=== PATIENT | male | born 1945 | race Caucasian/White ===

== ENCOUNTER → 2018-08-11 | Outpatient (CLI) | payer MEDICARE, OTHER ==
[~2018-08-11] MED LIST: COUMADIN 22.5 MG/TAB PO; COUMADIN 5MG5 MG/TAB PO; KEPPRA250 MG PO; NEURONTIN100 MG/CAP PO; NORCO 325 MG-51 TAB PO; PERCOCET 325 MG1 TA2 PO; TOPROL XL 25MG25 MG PO; ZYLOPRIM 300MG300 MG PO
== END ==
LOC: COL.RAD 07:26
DX: Z01.818 Encounter for other preprocedural examination (principal); I71.01 Dissection of thoracic aorta; I10 Essential (primary) hypertension; I71.4 Abdominal aortic aneurysm, without rupture; M46.96 Unspecified inflammatory spondylopathy, lumbar region; M43.8X5 Other specified deforming dorsopathies, thoracolumbar region; K80.20 Calculus of gallbladder without cholecystitis without obstruction; Z95.1 Presence of aortocoronary bypass graft
CPT/HCPCS: Q9967

== ENCOUNTER 2019-03-21 08:45 | Outpatient (RCR) | payer MEDICARE, OTHER | END 2019-04-14 | disposition still patient (30) | LOC: MKS.ESL.PT | DX: G81.94 Hemiplegia, unspecified affecting left nondominant side (principal); R25.2 Cramp and spasm; R26.81 Unsteadiness on feet ==

== ENCOUNTER → 2021-01-10 | Outpatient (CLI) | payer MEDICARE | LOC: COL.RAD 09:47 | DX: M75.101 Unspecified rotator cuff tear or rupture of right shoulder, not specified as traumatic (principal) ==

== ENCOUNTER 2021-03-18 10:30 | Outpatient (RCR) | payer MEDICARE | END 2021-03-18 12:40 | disposition home or self-care (01) | LOC: MKS.ESL.PT 10:30 | DX: M25.519 Pain in unspecified shoulder (principal) ==

== ENCOUNTER 2022-01-25 17:50 | Observation (INO) | payer MEDICARE ==
[~2022-01-25] VITALS: Ht 180.3 cm; Wt 91.8 kg
[2022-01-25 18:16] LABS: BASO # 0.1 K/mm3 (0.0-0.2); BASO % 1.1 % (0.0-2.0); EOS # 0.1 K/mm3 (0.0-0.7); EOS % 1.7 % (0.0-4.0); GRAN # 4.1 K/mm3 (1.4-6.5); GRAN % 76.5 % (42.2-75.2); HEMATOCRIT 38.2 % (42.0-52.0); LYMPH # 0.7 K/mm3 (1.2-3.4); LYMPH % 13.9 % (20.0-51.0); MEAN CELL VOLUME 89 fl (80.0-100.0); MEAN CORPUSCULAR HEMOGLOBIN 33 pg (27-31); MEAN CORPUSCULAR HGB CONC 37 g/dl (33.0-37.0); MEAN PLATELET VOLUME 9.5 fl (7.4-10.4); MONO # 0.3 K/mm3 (0.1-0.6); MONO % 6.4 % (1.7-9.3); PLATELET COUNT 152 K/mm3 (130-400); RED BLOOD COUNT 4.31 M/mm3 (4.20-5.60); REDCELL DISTRIBUTION WIDTH-CV 12.6 % (11.5-14.5)
[2022-01-25 18:30] LABS: INR 3.4 (0.8-3.0); PROTHROMBIN TIME 40.1 SECONDS (9.7-12.8)
[2022-01-25] MEDS ORDERED: COZAAR 25MG25 MG/TAB (19:14)
[2022-01-25] MEDS ORDERED: GLUCOPHAGE500 MG/TAB PO ×2 (19:16→19:45)
[2022-01-25] MEDS ORDERED: UROXATRAL10 M1 PO ×2 (19:19→19:43)
[2022-01-25] MEDS ORDERED: NEURONTIN300 MG/CAP PO ×2 (19:20→19:47)
[2022-01-25] MEDS ORDERED: HYZAAR 25 MG-101 TAB PO (19:43)
[2022-01-25] MEDS ORDERED: KEPPRA750 MG PO (19:44)
[2022-01-25] MEDS ORDERED: KEPPRA 500MG500 MG PO (19:44)
[2022-01-25] MEDS ORDERED: COUMADIN 5MG5 MG/TAB PO (19:46)
[2022-01-25] MEDS ORDERED: ZYLOPRIM 100MG100 MG PO (19:47)
[2022-01-25] MEDS ORDERED: NORCO 325 MG-51 TAB PO (19:47)
[2022-01-25 21:03] VITALS: BP 153/83; PULSE 69; TEMP 97.9
--- NOTE | 2022-01-25 21:05 | NUR ---
PT BROUGHT TO ROOM FROM ED AND ADMITTED.
[2022-01-25 21:25] LABS: CALCIUM 9.2 mg/dL (8.4-10.2); CREATININE, serum 0.85 mg/dL (0.72-1.25); POTASSIUM 3.6 mmol/L (3.5-4.5)
[2022-01-25 23:28] VITALS: BP 155/67; PULSE 56; TEMP 97.9
--- NOTE | 2022-01-26 00:31 | NUR ---
Pt alert and oriented. Follows commands. Q4 neuro checks being assessed. Denies dizziness/lightheadedness/nausea/vomiting. Reports pain on the left side with movement and reports he is unable to bare weight on the left. Prn pain medication administered x1 for left sided pain. 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 Right hand fruit buying grader is strong. Pt reports using a cane at home to ambulate, but is unable to ambulate at this time. Pt voided in urinal with assistance. Pt has some edema in the left foot with bruising noted. There is some light scattered bruising on the left leg, did not note any significant bruising on the left hip. No open wounds noted. Admission intake and admission assessments completed. Med rx reviewed. Allergies confirmed. COVID and infectious disease assessments completed. VS stable. Afebrile. On room air. Fall precautions in place. Seizure precautions in place. Pt does not report any questions at this time. Pt oriented to room. Bed low and locked, call sparks within reach. No new concerns at this time.
[2022-01-26 03:55] VITALS: BP 142/84; PULSE 55; TEMP 98.2
[2022-01-26 07:13] VITALS: BP 122/65; PULSE 53; TEMP 98.1
--- NOTE | 2022-01-26 07:24 | NUR ---
No adverse events overnight. Pt reports left sided pain with movement. Prn pain medication administered x1 per orders. Tolerating PO. Neuro checks continuing per orders. Ice pack offered to pt, but he refused at this time. Pt voided adequtely overnight. Fall precautions and seizure precauions in place. Bed low and locked, call sparks within reach. No concerns at this time.
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
[2022-01-26 10:23] LABS: INR 3.2 (0.8-3.0); PROTHROMBIN TIME 36.6 SECONDS (9.7-12.8)
[2022-01-26 11:06] VITALS: BP 98/61; PULSE 56; TEMP 98.7
--- NOTE | 2022-01-26 11:26 | NUR ---
General Agent met with patient Joe, and his spouse Mary cell, at bedside. Patient is alert and oriented, and he gives verbal consent to speak to this General Agent with spouse present. Patient states he has suffered left-side weakness for 20 years, and he does have a cane at home that he occasionally uses to ambulate, preferring to try to walk independently without and he states he uses "lots of chairs, couches" to help him with his balance when walking at home. He does report access to a wheelchair, as needed, and he has grab bars in his shower. He denies use of any other durable medical equipment, and he states he is otherwise independent in his ADLs. His spouse informs she is unable to pick him up off the floor if he should fall, so that is their only difficulty. Usually, she can support him in his needs, including IADLs. They utilize no in-home supports or services at this time. Patient sees Dr. Burton Smart for primary care, and he obtains his medications at [facility] without any difficulties. He states PT has met with him today and recommends he be placed in intensive rehab to get stronger before return to home. He asks if this General Agent will support that plan. General Agent informs will absolutely support the recommendation for rehab in collaboration with his medical treatment team. He expresses gratitude. Patient spouse is his DPOA-HC and his adult son Guzman Houser, is secondary ; spouse will bring up the paperwork to be scanned into patient EMR. Patient states "What kind of questions should I ask you?" and he verbalizes understanding of social work services as educated/offered. He and his spouse express no further concerns at this time. Social Work continues to follow. *Discharge plan: pending PT/OT and physician recommendation* Social Work notes, per Dr. Puente, no IPR referral at this time, will continue to monitor for medical needs.
[2022-01-26 15:44] VITALS: BP 121/57; PULSE 60; TEMP 98.8
--- NOTE | 2022-01-26 16:26 | NUR ---
PATIENT RESTING IN BED MOST OF THE DAY, MINIMAL COMPLAINTS OF PAIN EXCEPT DURING MOVEMENT. PATIENT MOSTLY FLACCID ON LEFT SIDE DUE TO PREVIOUS MEDICAL ERROR. TRACE MOVEMENT. PATIENT COMPLAINT OF CONSTIPATION, WILL INQUIRE ABOUT BOWEL MEDS. PATIENT UNABLE TO OPERATE PHONE DUE TO EXTREMITY LIMITATIONS, CHANGED MEALS TO HOUSE SELECT. 2 ASSIST TO BEDSIDE COMMODE. NO OTHER CONCERNS AT THIS TIME.
[2022-01-26 19:35] VITALS: BP 104/56; PULSE 77; TEMP 98.7
--- NOTE | 2022-01-26 20:00 | NUR ---
Initial shift assessment done- Alert, oriented x3, at bedside, cooperative, states has pain to left knee when he moves it- none at this time, using the urinal at bedside- has the left sided weakness history-- on Seizure precautions,
[2022-01-26 23:28] VITALS: BP 138/70; PULSE 57; TEMP 98.5
[2022-01-27 03:35] VITALS: BP 115/58; PULSE 93; TEMP 97.9
[2022-01-27 07:17] LABS: INR 3.6 (0.8-3.0); PROTHROMBIN TIME 41.9 SECONDS (9.7-12.8)
[2022-01-27 07:33] VITALS: BP 131/70; PULSE 64; TEMP 97.9
--- NOTE | 2022-01-27 08:53 | NUR ---
Patient resting in bed. Left knee causing significant discomfort. Lidocaine patch applied to lateral L knee. L foot bruising overnight. Bowels active, no complaints of constipation. Mirilax and colace given. Patient continent of urine and stool. Plan for MRI today of the knee and Ortho consult. Hold for PT.
--- NOTE | 2022-01-27 10:30 | NUR ---
Initial visit; Patient thanked Senior Quality Methods Specialist for looking in on him and offering God's blessings. Senior Quality Methods Specialist will keep patient in her prayers and wished him well.
--- NOTE | 2022-01-27 10:44 | NUR ---
PT is recommending IPR. SW consulted IPR Stephanie Rosado.
[2022-01-27 13:00] VITALS: BP 122/65; PULSE 54; TEMP 98.9
--- NOTE | 2022-01-27 16:06 | NUR ---
Rubio, at [facility], reports that they are able to accept the patient for services.
[2022-01-27 16:26] VITALS: BP 140/79; PULSE 63; TEMP 99.3
--- NOTE | 2022-01-27 17:27 | NUR ---
Patient resting in bed today. Non-weight bearing on left leg. PT hold till patient cleared by ortho. Very plesant. No complaints. Pain on movement. No concerns at this time from nursing.
--- NOTE | 2022-01-27 20:30 | NUR ---
Initial shift assessment done- states having some pain to left leg/knee area/ will give a [place] as ordered, using urinal in bed- VSS, denies need for snack tonight, INT to right wrist,
[2022-01-27 20:43] VITALS: BP 115/60; PULSE 62; TEMP 98.6
[2022-01-28 00:03] VITALS: BP 113/54; PULSE 57; TEMP 98.5
[2022-01-28 03:45] VITALS: BP 121/57; PULSE 59; TEMP 98.4
--- NOTE | 2022-01-28 05:44 | NUR ---
Did sleep well tonight- Up to BS with 2 assists, did void per urinal during the night-- would like a [place] this morning for pain to left leg.
[2022-01-28 07:47] VITALS: BP 123/63; PULSE 59; TEMP 98.8
[2022-01-28 08:00] VITALS: BP 123/63; PULSE 59; TEMP 98.8
[2022-01-28 09:20] LABS: PROTHROMBIN TIME 34.3 SECONDS (9.7-12.8)
[2022-01-28 11:47] VITALS: BP 119/88; PULSE 59
[2022-01-28 12:00] VITALS: BP 119/88; PULSE 59
--- NOTE | 2022-01-28 14:03 | NUR ---
Stephanie, IPR Director, reports that they are able to accept the patient today. The patient is to discharge today, 01/28, to [facility]. No additional needs at this time.
[2022-01-28] MEDS ORDERED: *Hypoglycemia Clinic MC (14:09)
[2022-01-28] MEDS ORDERED: Remove Patch TD (14:09)
[2022-01-28] MEDS ORDERED: NOVLOG SQ (14:10)
[2022-01-28] MEDS ORDERED: SALONPAS1 EACH TP (15:05)
[2022-01-28] MEDS ORDERED: FLOMAX 0.40.4 MG/CAP PO (15:07)
[2022-01-28] MEDS ORDERED: COLACE 100100 MG/CAP PO (15:08)
[2022-01-28] MEDS ORDERED: MIRALAX PA17 GM/Dose PO (15:09)
--- NOTE | 2022-01-28 15:49 | NUR ---
REPORT CALLED TO [facility] NURSE BRADLEY. ALL QUESTIONS ANSWERED. PATIENT LEFT IN STABLE CONDITION. ALL BELONGINGS AND BRACE TAKEN TO ROOM 334 WITH PATIENT.
== END 2022-01-28 15:45 ==
LOC: COL.ER 17:50 → MEDICAL 19:21
PROVIDERS: Family Medicine; Internal Medicine; Nurse Practitioner Family; ADMIT Student in an Organized Health Care Education/Training Program
DX: S82.101A Unspecified fracture of upper end of right tibia, initial encounter for closed fracture (principal); S83.241A Other tear of medial meniscus, current injury, right knee, initial encounter; W18.39XA Other fall on same level, initial encounter; I10 Essential (primary) hypertension; Z95.2 Presence of prosthetic heart valve; Z79.01 Long term (current) use of anticoagulants; R56.9 Unspecified convulsions; E11.9 Type 2 diabetes mellitus without complications; Z79.84 Long term (current) use of oral hypoglycemic drugs; Z79.4 Long term (current) use of insulin; Z79.899 Other long term (current) drug therapy
CPT/HCPCS: G0378; J1815

== ENCOUNTER 2022-01-28 14:42 | Inpatient (IN) | payer MEDICARE ==
[~2022-01-28] VITALS: Ht 180.3 cm; Wt 87.7 kg
[~2022-01-28 14:42] MED LIST changes: +*Hypoglycemia Clinic MC; +COZAAR 25MG25 MG/TAB; +GLUCOPHAGE500 MG/TAB PO; +HYZAAR 25 MG-101 TAB PO; +KEPPRA 500MG500 MG PO; +KEPPRA750 MG PO; +NEURONTIN300 MG/CAP PO; +NOVLOG SQ; +Remove Patch TD; +UROXATRAL10 M1 PO; +ZYLOPRIM 100MG100 MG PO
[2022-01-28] MEDS ORDERED: SALONPAS1 EACH TP (15:05)
[2022-01-28] MEDS ORDERED: FLOMAX 0.40.4 MG/CAP PO (15:07)
[2022-01-28] MEDS ORDERED: COLACE 100100 MG/CAP PO (15:08)
[2022-01-28] MEDS ORDERED: MIRALAX PA17 GM/Dose PO (15:09)
--- NOTE | 2022-01-28 15:15 | NUR ---
PATIENT WAS ADMITTED ON TO [facility] AROUND 315PM. PATIENT IS ALERTX 3 WITH NO MEMORY ISSUE. PATIENT LUNG CLEAR IN ALL LOBES. BOWEL SOUND ACTIVE IN ALL 4 QUADS. LAST BOWEL MOVEMENT WAS 2 DAYS AGO.STOMACH ROUND BUT SLIGHTLY SOFT. PATIENT DID SAY HE HAS ISSUE WITH BOWEL MOVEMENT. LEFT LEG KNEE IS SWOLLEN AND SLIGHTLY RED. LIDOCAINE ON AT THIS TIME. NO SKIN ISSUE ON BACK BUT NOTICES SMALL SCAB ON LEFT ANKLE. PATIENT LEFT FOOT (DROP FOOT) PATIENT ABLE TO MOVE RIGHT WITH NO ISSUE BUT NOT THE LEFT.KNEE BRACE IS SUPPOSE TO BE ON AT ALL TIME WHEN MOVING IN BED OR OUT OF BED. PATIENT IS DIABETES AND JUST STARTED METFORMIN INSTEAD OF INSULIN. PATIENT IS FULL CODE. ALLERGIES TO MORPHINE. PATIENT HAD HISTROY OF SEIZURE PRECAUTION AND PADDING IS IN PLACE. CALL LIGHT IN REACH.
[2022-01-28 15:49] VITALS: BP 135/70; PULSE 64; TEMP 98.7
[2022-01-28 17:29] VITALS: BP 121/64; PULSE 65; TEMP 99.5
[2022-01-28 18:00] VITALS: BP 121/64; PULSE 65; TEMP 99.5
--- NOTE | 2022-01-28 19:13 | NUR ---
GAVE REPORT TO NIGHT NURSE RUBEN REGARDING PATIENT CARE. PATIENT WAS EATING DINNER DURING OUR BED SIDE REPORT
--- NOTE | 2022-01-28 19:24 | NUR ---
LLE immobilizer put on at pt's request. Pt. feeling like the back of the brace is digging into the upper back thigh. Washcloth placed to back of brace for added cushion.
--- NOTE | 2022-01-28 19:40 | NUR ---
RECEIVED CHANGE OF SHIFT REPORT FROM DAY SHIFT RN. RESTING IN BED WITH EXIT ALARM ON, CALL LIGHT WITHIN REACH.
[2022-01-29 04:46] VITALS: BP 118/62; PULSE 61; TEMP 98.5
--- NOTE | 2022-01-29 06:54 | NUR ---
Shift report received from brazer furnace RN
--- NOTE | 2022-01-29 06:58 | NUR ---
CHANGE OF SHIFT REPORT GIVEN TO DAY SHIFT RNJORDY.
--- NOTE | 2022-01-29 08:04 | NUR ---
Pt. resting in bed with HOB approx 30 degrees. Leg immobilizer taken off while pt is awake in bed. He received a pain pill during the previous shift - currently denies pain/discomfort. Call light is within his reach. Bed alarm is on. He denies additional needs at this time
--- NOTE | 2022-01-29 11:31 | NUR ---
Pt resting supine in bed. HOB slightly elevated. LLE immobilizer adjusted at pt's request. LLE elevated on pillow. Ice applied to left knee. Aquacell dressing applied to left ankle open area. Pt. showered with OT this morning and dressing was removed. Pt. denies additional needs at this time. Call light is within his reach. Bed alarm is on
--- NOTE | 2022-01-29 13:20 | NUR ---
fabric lay out worker met with patient to complete intake. Patient currently lives at home with his Mary ([phone]). Together they live in a ground entry home and does not have any steps in his home. Prior to his current state, he has been independent with his ADL's and would utilize a cane to assist with ambulation PRN. Patient has no home oxygen needs. PCP is Dr. Bennett and he utilizes [id number] for prescriptions. Patient reports that he does have a DPOA-HC established listing his Mary and his son Guzman Houser as his seconday agent. Patient asks about what returning home would look like and if it was possible to established HH. Informed patient that it will depend on the therapist recommendation's but that if they do recommend HH, i can assist with establishing this care. Discharge plan: Patient would liek to return home with HH if possible.
[2022-01-29 17:11] VITALS: BP 117/66; PULSE 65; TEMP 99.9
--- NOTE | 2022-01-29 17:13 | NUR ---
PATIENT TEMPATURE IS 99.9. EDUCATED PATIENT TO DRINK MORE WATER THEN NORMAL. NOTICES PATIENT CONTAINER THAT HE HAS IS STILL FULL. PATIENT TOOK 2 SIPS OF WATER AND STATED(THAT WAS TWO CUP FULL ALREADY) I EXPLAIN WE ARE TRYING TO PREVENT ANY INFECTION. PATIENT UNDERSTOOD.
[2022-01-29 18:15] VITALS: TEMP 98.5
--- NOTE | 2022-01-30 04:23 | NUR ---
pt required assist of 2 to transfer on and off BSC prior to bed, had small bm, pain controlled with oral meds. brace to LLE on at all times tonight, leg elevated on pillows, ice pack in place. calls for assistance appropriately.
[2022-01-30 05:32] VITALS: BP 132/76; PULSE 65; TEMP 99.1
[2022-01-30 07:08] LABS: INR 1.9 (0.8-3.0)
--- NOTE | 2022-01-30 12:56 | NUR ---
Follow-up visit; Patient up walking with Physical Therapist. He and Cook Room Supervisor exchanged a "Good morning and Cook Room Supervisor remarked on how well Joe was doing." He thanked Cook Room Supervisor and seemed very optimistic.
[2022-01-30 17:21] VITALS: BP 141/89; TEMP 98.8
--- NOTE | 2022-01-30 20:00 | NUR ---
PT SITTING UP IN BED WATCHING TV. SEE MAR FOR NORCO GIVEN FOR LLE PAIN. IMMOBILIZER IN PLACE. GOOD SENSATION. SL DISCOLORATION TO BILAT LE- NORMAL FOR HIM.
[2022-01-31 05:28] VITALS: BP 120/65; PULSE 61; TEMP 98.9
[2022-01-31 10:24] LABS: PROTHROMBIN TIME 23.2 SECONDS (9.7-12.8)
--- NOTE | 2022-01-31 15:33 | NUR ---
Admission QIM scores were reviewed by the team. Code of 5 chosen for eating was determined by team discussion to be the most usual performance before interventions for this patient during the assessment period. Code of 2 chosen for toilet hygiene was determined by team discussion to be the most usual performance before interventions for this patient during the assessment period. Code of 2 chosen for sit to lying was determined by team discussion to be the most usual performance before interventions for this patient during the assessment period. Code of 3 chosen for lying to sitting on side of bed was determined by team discussion to be the most usual performance before interventions for this patient during the assessment period. Code of 1 chosen for sit to stand was determined by team discussion to be the most usual performance before interventions for this patient during the assessment period. Code of 1 chosen for chair/bed to chair transfer was determined by team discussion to be the most usual performance before interventions for this patient during the assessment period.--Stephanie Napier, PD
[2022-01-31 18:02] VITALS: BP 106/61; PULSE 68; TEMP 98
[2022-02-01 05:13] VITALS: BP 127/61; PULSE 65; TEMP 98.1
--- NOTE | 2022-02-01 06:46 | NUR ---
Shift report received from shift production supervisor RN
[2022-02-01 07:11] LABS: INR 2.3 (0.8-3.0); PROTHROMBIN TIME 26.9 SECONDS (9.7-12.8)
--- NOTE | 2022-02-01 09:27 | NUR ---
Pt off unit to work with PT and Group Therapy
--- NOTE | 2022-02-01 11:44 | NUR ---
Pt back in bed after Group Therapy. PRN pain medication given at his request. LLE immobilizer is on. LLE elevated on pillow. Pt. denies further needs. Call light is within his reach. Bed alarm is on
--- NOTE | 2022-02-01 13:21 | NUR ---
Aquacell foam changed to left outer ankle. Open area has a scab formed in the center. No redness periwound. No drainage.
--- NOTE | 2022-02-01 16:20 | NUR ---
Pt assisted to bedside commode using 2 person assist and gait belt to maintain TTWB status to LLE. Pt. denies pain or discomfort. Pt. assisted back to bed at his request after toileting. LLE immobilizer is on. Call light is within his reach. Bed alarm is on
--- NOTE | 2022-02-01 16:54 | NUR ---
Pt reporting an area of dry, peeling skin, with a scab to left 3rd toe. No open areas noted. He does not remember ever seeing this area before. Moisturizing lotion applied to bilat toes/feet.
[2022-02-01 17:03] VITALS: BP 113/60; PULSE 62; TEMP 98.4
--- NOTE | 2022-02-01 20:10 | NUR ---
PT RESTING IN BED. TILE LAYER SUPERVISOR ASSISTING WITH HS CARES. LLE IMMOBILIZER IN PLACE. GOOD SENSATION AND PULSES. HX LT HEMPARESIS. LT HAND SUPPORT ON. SEE MAR FOR PAIN MED GIVEN. CALL LIGHT IN REACH. BED ALARM SET.
[2022-02-02 06:04] VITALS: BP 143/79; PULSE 88; TEMP 98.3
--- NOTE | 2022-02-02 06:46 | NUR ---
Shift report received from night shift manager RN. Pt. reporting that the LLE brace "scraped" his right lebron. This area is feeling sore this morning. Pt. would like pain medication this morning for LLE pain. Denies further needs. Call light is within his reach
[2022-02-02 08:05] LABS: INR 2.3 (0.8-3.0); PROTHROMBIN TIME 26.2 SECONDS (9.7-12.8)
--- NOTE | 2022-02-02 09:22 | NUR ---
Pt resting in supine in bed. is at the bedside. LLE immobilizer is not on as pt. is awake. He reports feeling muscle soreness "all over" from Group Therapy yesterday. Bed bath given by this morning. Pt. denies further needs at this time. Call light is within his reach. Bed alarm is on
--- NOTE | 2022-02-02 11:57 | NUR ---
Pt sitting up in bed reading a book. He reports minimal LLE pain. Pt reminded that enough time has passed since last pain medication was given and that he can have another dose at anytime. Pt. v/u and will call for nurse if pain medication is desired. Pt. denies further needs at this time. Call light is within his reach
--- NOTE | 2022-02-02 14:17 | NUR ---
Pt reporting suspected heat rash to back that began yesterday. Red bumps noted to be scattered across middle to lower back. No blisters. No draining bumps. No associated pain. Rash is not bothersome today but felt really itchy yesterday. applied a moisturizing lotion to the rash yesterday which was helpful. Will notify rehab physician in the a.m. or hospitalist if rounding on unit today.
[2022-02-02 16:51] VITALS: BP 115/70; PULSE 59; TEMP 98.3
--- NOTE | 2022-02-02 17:16 | NUR ---
Pt repositioned from bed to recliner at his request for dinner. is at the bedside. LLE immobilizer is on. Pt. denies the need for pain medication at this time. Call light is within his reach. Pt. denies further needs at this time
--- NOTE | 2022-02-02 17:59 | NUR ---
This nurse in room to assist with transferring pt from recliner to bed. Pt. reporting LLE pain. PRN pain medication offered. Pt. expressed that PRN [place] has not been helpful for his pain. Pt. thinks he takes hydrocodone (w/out APAP) at home but is not sure w/out looking at the medication label. This nurse spoke with Dr. Maguire about pt's pain. Hydrocodone dc'd and Percocet 5mg ordered per Dr. Maguire. Pt. and aware of medication change
--- NOTE | 2022-02-02 18:30 | NUR ---
Percocet given to pt as ordered. Pt. confirmed allergy to morphine but thinks he has had percocet and/or oxycodone in the past. Discussed with pt that percocet is oxycodone + acetaminophen. Discussed with pt that if he feels any sx of allergic reaction to alert nursing staff immediately. present during this teaching. Pt and voiced understanding and had no further questions. Patient education printed from [employer] re: Perocet and given to pt.
--- NOTE | 2022-02-02 20:00 | NUR ---
PT RESTING IN BED. READY FOR BED.LLE IMMOBILIZER IN PLACE. PT RELATES HE HX OF POOR RELIEF OF PAIN FROM NARCOTICS. PT RELATED PERCOCET HELPED ALITTLE. CALL LIGHT IN REACH. BED ALARM SET.
[2022-02-03 05:24] VITALS: BP 155/69; PULSE 57; TEMP 98.3
[2022-02-03 06:32] LABS: INR 2.6 (0.8-3.0); PROTHROMBIN TIME 29.6 SECONDS (9.7-12.8)
--- NOTE | 2022-02-03 06:46 | NUR ---
Shift report received from [facility] shift lead RN. Pt. reporting stiffness in LLE. LLE immobilizer taken off by this junior underwriter as pt. is awake in bed. He is requesting a pain pill w/ his morning meds. Pt. denies additional needs. Call light is within his reach. Bed alarm is on
--- NOTE | 2022-02-03 14:54 | NUR ---
JIMMIE met with the patient to introduce oneself and follow up after the weekend. The patient states that he is making progress. JIMMIE discussed setting up a patient/family meeting. The patient is in agreement to this. JIMMIE contacted the patient's and a patient/family meeting was scheduled for this Thursday at 1000. JIMMIE notified IPR Director.
[2022-02-03 17:22] VITALS: BP 127/78; PULSE 57; TEMP 98.1
[2022-02-04 05:46] VITALS: BP 154/72; PULSE 56; TEMP 97.6
--- NOTE | 2022-02-04 06:43 | NUR ---
RECEIVED BEDSIDE REPORT FROM NURSE RODAS. PATIENT RESTING IN BED WITH NO DISTRESS AT THIS TIME.
[2022-02-04 06:48] LABS: INR 2.3 (0.8-3.0); PROTHROMBIN TIME 27.2 SECONDS (9.7-12.8)
--- NOTE | 2022-02-04 09:50 | NUR ---
ASSESSMENT DONE TODAY. PATIENT ALERT AND ORIENT X 4. LUNG SOUND CLEAR IN ALL LOBES. BOWEL SOUND ACTIVE IN ALL 4 QUADS. PAIN RIGHT NOW IS A 6/10 ON LEFT ARM BUT HE SAID WHEN P.T WORKS IT,THE PAIN DECREASE.I ALSO GAVE HIM A PAIN MEDICATION.
[2022-02-04 17:49] VITALS: BP 119/69; PULSE 63; TEMP 97.7
[2022-02-05 05:53] VITALS: BP 138/68; PULSE 58; TEMP 98.3
[2022-02-05 07:14] LABS: INR 2.3 (0.8-3.0); PROTHROMBIN TIME 26.9 SECONDS (9.7-12.8)
--- NOTE | 2022-02-05 11:10 | NUR ---
PATIENT CURRENTLY WORKING WITH THERAPY.
--- NOTE | 2022-02-05 13:08 | NUR ---
Follow-up; spoke briefly with Joe several times today, offering greetings and encouragement as he rested and as he did some Physical Therapy. Patient seems to be optimistic and works hard to get better.
--- NOTE | 2022-02-05 14:48 | NUR ---
JIMMIE attended the patient/family meeting. The patient's , Mary, was at bedside. Also present was IPR Director, Dr. Dunlpa, PT, and OT. IPR Director started by explaining the purpose of the meeting. Dr. Dunlap provided the patient and his with a medical update. PT/OT discussed the patient's progress so far and how he would need set up assistance and supervision at home. The team would like to do some training with the patient's before discharge. The team is recommending home health PT/OT and that he would need a wheelchair with swing away arms, drop-arm commode, and a 30 inch transfer board. The patient and his are in agreement to the plan. His plans to come tomorrow afternoon for some training. The team answered all questions. JIMMIE then attempted to meet with the patient this afternoon to present and review the IPR Team Conference Note and provide him with Medicare[employer]'s list of home health agencies that serve [place]. The patient was sleeping peacefully. JIMMIE then contacted the patient's , Mary, to inform of the home health list being in the room. Mary stated, "I don't think I can do this." She states that she watched OT with the patient this afternoon and is concerned about being able to take care of him and provide all the assistance he will need until he is able to bear weight on his leg. She states that she is leaning towards SNF, but would like to talk to the patient about this first, before making a final decision. JIMMIE provided her with this JIMMIE's phone number. JIMMIE updated IPR Director.
--- NOTE | 2022-02-05 16:29 | NUR ---
The patient's , Mary, contacted this SW back. She states that she talked to the patient and they would both like to pursue with SNF upon discharge. Mary states that they prefer 1) [facility] 2) [facility]. SW contacted and faxed a referral to both facilities. Awaiting screens.
[2022-02-05 17:29] VITALS: BP 116/65; PULSE 65; TEMP 98.1
--- NOTE | 2022-02-05 19:45 | NUR ---
PT RESTING IN BED. HS CARE COMPLETE WITH ASSIST OF SUPERVISOR RECORD PRESS. LT LEG IMMOBILIZER IN PLACE ICE PACK IN PLACE. SEE MAR FOR NORCO GIVEN. CALL LIGHT IN REACH. BED ALARMSET.
--- NOTE | 2022-02-06 05:43 | NUR ---
PT SLEPT WELL IN THE NIGHT.
--- NOTE | 2022-02-06 05:44 | NUR ---
PT SLEEPING. NO DISTRESS. QUIET NIGHT.
[2022-02-06 05:45] VITALS: BP 149/74; PULSE 59; TEMP 98.4
--- NOTE | 2022-02-06 06:39 | NUR ---
RECEIVED BEDSIDE REPORT FROM NIGHT NURSE DRAKE. PATIENT RESTING IN BED WITH NO DISTRESS NOTED
--- NOTE | 2022-02-06 09:40 | NUR ---
ASSESSMENT DONE. PATIENT ALERT X 4 WITH NO MEMORY ISSUE. PAIN TODAY WAS HIGH IN THE AM BUT WITH NORCO ON BOARD PAIN DECREASE TO A 4/10 (OKAY PAIN PER PATIENT). LUNG CLEAR IN ALL LOBES. BOWEL SOUND ACTIVE IN ALL 4 QUADS. PATIENT LEFT LEG CONTINUETO ACHE BUT HAVE SLIGHTLY MORE MOVEMENT. PATIENT STATED THAT HIS LEFT ARM CONTINUE TO ACHE BUT PT HAS BEEN WORKING ON IT SINCE BEING HERE. PATIENT STATED THAT HIS STRENGHT HAS INCREASE SLIGHTLY ON LEFT ARM BUT NOT MUCH. CALL LIGHT IN REACH.
--- NOTE | 2022-02-06 11:52 | NUR ---
Mac, at [facility], reports that they can follow the patient. They are currently full right now and unsure if a bed will open up by next Thursday. Awaiting response from [facility]. SW to fax updates to [facility] and [facility].
--- NOTE | 2022-02-06 12:28 | NUR ---
LOVENOX SHOT GIVE ORDER. PATIENT TOLERATED WELL
--- NOTE | 2022-02-06 15:37 | NUR ---
Bhavesh, at [facility], reports that they will require a Break in Stay Letter from the Ortho doctor. Dr. Delgado did the patient's surgery. JIMMIE contacted Dr. Delgado's PA, Tawanna Jordan. Tawanna states that they will not be up to the hospital for another month and to contact and fax the letter to their office. JIMMIE contacted Melisa at [facility] and updated her on the above. Melisa provided JIMMIE with their fax number. JIMMIE faxed the Break in Stay Letter to [facility] and requested that they fax it back to the case management department.
[2022-02-06 17:04] VITALS: BP 114/66; PULSE 63; TEMP 98.7
--- NOTE | 2022-02-06 20:35 | NUR ---
PT RESTING IN BED. REQUEST FOR PAIN MED FOR LLE PAIN LEVEL 12/06. REPOSITIONED IMMOBILIZER. GOOD SENSATION LLE, CALL LIGHT IN REACH. BED ALARM SET.
[2022-02-07 05:20] VITALS: BP 149/66; PULSE 59; TEMP 98
[2022-02-07 06:22] LABS: INR 2.2 (0.8-3.0)
--- NOTE | 2022-02-07 06:36 | NUR ---
SEE MAR FOR PAIN MED FOR LLE PAIN LEVEL 8. PT IN COMFORTABLE RELAXED POSITION. CALL LIGHT IN REACH. BED ALARM SET.
--- NOTE | 2022-02-07 06:41 | NUR ---
BEDSIDE REPORT DONE. PATIENT RESTING IN BED. JUST RECEIVED A NORCO FOR PAIN
--- NOTE | 2022-02-07 09:22 | NUR ---
ASSESSMENT DONE ORDER. PATIENT RESTING IN BED READY FOR THE DAY TO START. PAIN MEDICATION WAS GIVE AROUND 630 WHEN I ARRIVED. PAIN DECREASE FROM 7-8/10 TO A 5/10.LUNG SOUND CLEAR IN ALL LOBES. BOWEL SOUND ACTIVE. PATIENT ATE WELL THIS AM.PATIENT CONTINUE TO NEED 2 PERSON ASSISTANCE IN GETTING UP TO COMMODE. STILL UNABLE TO BARE WEIGHT ON LEFT LEG. BRACE IS ON ORDER. CALL LIGHT IN REACH
--- NOTE | 2022-02-07 15:44 | NUR ---
It Help Desk Analyst faxed clinical updates to [facility], including Break in Stay Letter.
--- NOTE | 2022-02-07 16:15 | NUR ---
PATIENT HAS BEEN HAVING PAIN ON LEFT ARM. PAIN CREAM WAS PLACE ON TO SEE IF IT HELP. HE INFORM THAT HIS WILL BE BRING BIOFREEZE FOR HIM AND THAT WORKS FOR HIM. I EXPLAIN THAT WE WILL NEED A RX FOR IT. HE UNDERSTOOD. HE ALSO HAD A LOOSE MUSHY STOOL IN COMMODE
[2022-02-07 16:48] VITALS: BP 132/65; PULSE 63; TEMP 98.4
--- NOTE | 2022-02-07 19:04 | NUR ---
RECEIVED CHANGE OF SHIFT REPORT FROM DAY SHIFT RN.
[2022-02-08 05:47] VITALS: BP 140/71; PULSE 58; TEMP 97.1
[2022-02-08 06:28] LABS: INR 1.9 (0.8-3.0); PROTHROMBIN TIME 22.2 SECONDS (9.7-12.8)
--- NOTE | 2022-02-08 06:40 | NUR ---
BEDSIDE REPORT DONE ORDER. PATIENT RESTING IN BED. CALL LIGHT IN REACH.
--- NOTE | 2022-02-08 07:14 | NUR ---
CHANGE OF SHIFT REPORT GIVEN TO DAY SHIFT RNMIRNA.
--- NOTE | 2022-02-08 09:42 | NUR ---
ASSESSMENT DONE. PATIENT ALERT X 4 WITH NO MEMORY ISSUE. PATIENT REFUSED MIARLEX THIS AM AND STATED THAT HIS WILL BRING CERELY JUICE FOR HIS BOWEL. TOOK OTHER MEDICATION WITH NO ISSUE. LUNG CLEAR IN ALL LOBES. BOWEL SOUND ACTIVE IN ALL 4 QUADS. PATIENT LEFT SIDE IS WEAK(UPPER) LEFT LEG HAS A FRACTURE ANDBRACE IS STILL IN PLACE.LIDOCAINE PATCH WAS PLACE ON ORDER. CALL LIGHT IN REACH. PATIENT ABLE TO GET UP BUT WITH 2 PERSON ASSISTANCE AND PIVOT TRANSFER. LEFT LEG TTWB
--- NOTE | 2022-02-08 11:00 | NUR ---
SPOKE WITH REGARDING DISCHARGE INFORMATION. SHE SAID SHE SPOKE WITH BREANNA ROBERTSON AND THE INFORM HER THAT SHE WOULD HAVE TO PAY OUT OF POCKET FOR CARE FOR PATIENT SINCE HE IS NOT REHAB. I SPOKE WITH RAFAEL EDUCATOR SENIOR CLINICAL AND SHE WILL TALK TO FAMILY ABOUT IT.
[2022-02-08 17:38] VITALS: BP 145/88; PULSE 60; TEMP 98
--- NOTE | 2022-02-08 18:09 | NUR ---
SPOKE WITH FAMILY AGAIN ABOUT FACILITY AFTER PATIENT IS DISCHARGE. I EXPLAIN THAT MOST OF THE BUSINESS STAFF IS UNAVAILABE RIGHT NOW AND THAT THEY WILL HAVE TO WAIT UNTIL THURSDAY. UNDERSTOOD
--- NOTE | 2022-02-08 18:51 | NUR ---
RECEIVED CHANGE OF SHIFT REPORT FROM DAY SHIFT RN.
--- NOTE | 2022-02-08 19:24 | NUR ---
PATIENT REQUESTED/GIVEN PAIN MEDS, REQUESTED TO USE ON BIOFREEZE/FROM HOME AND STATED HE HAD MENTIONED IT TO DR PEREZ, MED APPLIED PER PATIENT REQUEST.
[2022-02-09 05:07] VITALS: BP 139/68; PULSE 60; TEMP 97.9
--- NOTE | 2022-02-09 06:23 | NUR ---
REQUESTED AND GIVEN PAIN MED FOR L SHOULDER PAIN, ALSO REQUESTING TO HAVE BIOFREEZE TOPICAL ROLLON TO BE APPLIED TO L SHOULDER/UPPER ARM. DENIES ANY OTHER NEEDS AT THIS TIME.
--- NOTE | 2022-02-09 06:49 | NUR ---
CHANGE OF SHIFT REPORT GIVEN TO DAY SHIFT RNOSCAR
[2022-02-09 06:55] LABS: INR 1.8 (0.8-3.0); PROTHROMBIN TIME 20.7 SECONDS (9.7-12.8)
--- NOTE | 2022-02-09 07:35 | NUR ---
Warfarin Follow-up Pharmacy Note Current regimen: Warfarin 5 mg po qHS LABS: INR 1.8 Changes in therapy: Will give an increased dose of Warfarin 6 mg po x1 tonight. Pharmacy will continue to closely monitor daily INR levels.
--- NOTE | 2022-02-09 14:53 | NUR ---
PATIENT BACK IN BED. ALL BELONGINGS AND WATER WITHIN REACH. BED ALARM ON.
[2022-02-09 17:09] VITALS: BP 139/75; PULSE 65; TEMP 97.9
--- NOTE | 2022-02-09 19:03 | NUR ---
RECEIVED CHANGE OF SHIFT REPORT FROM DAY SHIFT RN.
--- NOTE | 2022-02-09 19:19 | NUR ---
PATIENT REQUESTED TO HAVE HOME MED BIOFREEZE APPLIED TO LEFT UPPER ARM/BICEP AREA FOR C/O PAIN AND REQUESTED TO HAVE PAIN PILL WHEN NEXT AVAILABLE, WITH PATIENT INFORMED NEXT DOSE WOULD BE AVAILABLE AROUND 2100. DENIES ANY OTHER NEEDS.
[2022-02-10 05:57] VITALS: BP 135/66; PULSE 55; TEMP 98.2
[2022-02-10 06:23] LABS: INR 1.8 (0.8-3.0); PROTHROMBIN TIME 20.8 SECONDS (9.7-12.8)
--- NOTE | 2022-02-10 07:01 | NUR ---
CHANGE OF SHIFT REPORT GIVEN TO DAY SHIFT RNMIRNA.
--- NOTE | 2022-02-10 07:03 | NUR ---
CHANGE OF SHIFT REPORT GIVEN TO DAY SHIFT RNMIRNA.
--- NOTE | 2022-02-10 07:04 | NUR ---
BEDSIDE REPORT DONE ORDER. PATIENT RESTING IN BED WITH NO DSTRESS NOTED. CALL LIGHT IN REACH.
--- NOTE | 2022-02-10 08:56 | NUR ---
ASSESSMENT DONE ORDER. PATIENT ALERT AND ORIENTED X 4 WITH NO MEMORY ISSUE. PATIENT TOOK MEDICATION WTIH OUT ANY ISSUE. PAIN MEDICATION WAS GIVEN DUE TO PAIN ON LEFT ARM ACHE DULL CONSTANT PAIN. LEFT LEG NO PAIN BUT DID NOTICES THATTHE PATIENT IS MOVING LEGS MORE THAN BEFORE. NO SWELLING OR REDNESS NOTED.
--- NOTE | 2022-02-10 15:02 | NUR ---
Catalyst Recovery Operator faxed updates to both [facility] and [facility]. Edie at [facility] confirmed they cannot accept patient due to lack of bed availability. JIMMIE spoke with Davin at [facility] who advised they can accept with break in stay letter. Davin advised it needs to be signed by Dr. Delgado, not [facility]. JIMMIE contacted [facility] and faxed it for signature. JIMMIE met with patient and his , Mary to update that [facility] cannot accept, however [facility] can accept tomorrow. SW discussed NWB status and how this can affect Medicare payment. Patient and Mary verbalized understanding and are agreeable to discharge to [facility] tomorrow. Mary advised she spoke with Wood at [facility] who advised they would try to skill patient for a couple weeks, then he would be private pay until ortho follow up on 02/27/22. Patient desires to have his weight bearing status changed as soon as possible. JIMMIE advised this was up to Ortho. JIMMIE presented IM form to patient who verbalized understanding and provided signature. JIMMIE placed form in chart and provided copy to patient. JIMMIE also provided patient with the phone number for medical records per his request. Discharge Plan: [facility] SN[facility] tomorrow
[2022-02-10 17:15] VITALS: BP 117/61; PULSE 60; TEMP 98.1
--- NOTE | 2022-02-10 19:48 | NUR ---
PATIENT RESTING IN BED WATCHING TELEVISION WITH HIS AT BEDSIDE. PATIENT REQUESTS HIS BIOFREEZE BE BROUGHT INTO ROOM. PATIENT WAS GIVEN FRESH ICE WATER PER HIS REQUEST. PATIENT DENIES ANY FURHTER CONCERNS OR ISSUES AT THIS TIME. CALL LIGHT IS WITHIN REACH OF PATIENT.
[2022-02-11 05:23] VITALS: BP 127/67; PULSE 58; TEMP 98.4
--- NOTE | 2022-02-11 06:12 | NUR ---
PATIENT HAD AN UNEVENTFUL EVENING. PATIENT WITH NO SIGNS OR SYMPTOMS OF ANY ISSUES OR CONCERNS. PATIENT IS SLEEPING IN BED WITH EYES CLOSED AND CALL LIGHT WITHIN REACH.
[2022-02-11 07:54] LABS: INR 1.9 (0.8-3.0); PROTHROMBIN TIME 22.5 SECONDS (9.7-12.8)
--- NOTE | 2022-02-11 08:29 | NUR ---
Shift report received from shift production supervisor RN
--- NOTE | 2022-02-11 09:17 | NUR ---
Initial visit; Patient thanked [employer] for looking in on him and visiting and wishing him well. Patient states he would like for [employer] to keep him in her prayers.
[2022-02-11] MEDS ORDERED: TYLENOL 325MG325 MG PO (09:38)
[2022-02-11] MEDS ORDERED: HYDROCORTISON28.4 GM TP (09:40)
[2022-02-11] MEDS ORDERED: BANOPHEN MAXIMU1 CRE TP (09:40)
[2022-02-11] MEDS ORDERED: NORCO 325 MG-51 TAB PO (09:41)
[2022-02-11] MEDS ORDERED: NOVLOG SQ (09:46)
--- NOTE | 2022-02-11 11:31 | NUR ---
Warfarin Follow-up Pharmacy Note Current regimen: Warfarin 5 mg po qHS LABS: INR 1.9 Changes in therapy: Increase to Warfarin 5.5 mg po qHS. Pharmacy will continue to closely monitor daily INR levels.
--- NOTE | 2022-02-11 13:00 | NUR ---
Pt discharging to [facility] today. Report called to nurse. Transportation will arrive around 1500 today.
--- NOTE | 2022-02-11 13:49 | NUR ---
Discharge QIM scores were reviewed by the team. Code of 6 chosen for oral hygiene was determined by team discussion to be the most usual performance for this patient during the discharge assessment period. Code of 3 chosen for toilet hygiene was determined by team discussion to be the most usual performance for this patient during the discharge assessment period. Code of 4 chosen for toilet transfer was determined by team discussion to be the most usual performance for this patient during the discharge assessment period. Code of 6 chosen for sit to lying was determined by team discussion to be the most usual performance for this patient during the discharge assessment period. Code of 6 chosen for lying to sitting on side of bed was determined by team discussion to be the most usual performance for this patient during the discharge assessment period. Code of 3 chosen for sit to stand was determined by team discussion to be the most usual performance for this patient during the discharge assessment period. Code of 5 chosen for chair/bed to chair transfer was determined by team discussion to be the most usual performance for this patient during the discharge assessment period.--Stephanie Napier, PD
--- NOTE | 2022-02-11 15:29 | NUR ---
Transportation here to transport pt to [facility]. present. DC papers given to transportation person. Pt. escorted off unit via wheelchair. Belongings were gathered by . Denied valuables
--- NOTE | 2022-02-11 15:48 | NUR ---
Hotel Service Manager contacted [facility] again and requested letter be signed by Dr. Delgado. JIMMIE then contacted [facility] directly and Tawanna advised Dr. Delgado is in [place] today but will return to the [place] office at noon and will sign the letter this afternoon. JIMMIE spoke with Davin at [facility] [address] [address] and provided the above update. JIMMIE then faxed discharge orders. JIMMIE contacted RN to request covid test as it is a requirement of [facility] prior to discharge. RN advised patient was refusing covid swab and stated he would no go to [facility] if it was required. Stephanie, [facility] Director spoke with patient, then JIMMIE contacted Davin at [facility] and requested he contact patient as patient had many questions about [facility] policies and procedures about covid regulations. Davin made contact by phone with patient. RN followed up with patient and advised patient is expecting a document from [place] stating that there is no covid in the building. JIMMIE followed up with Davin who advised there was no document that could be provided but stated to this SW that there was no covid in their building at this time. JIMMIE met with patient and advised him of Davin's response. Patient was adamant that Davin told him he would provide this in writing. Patient wanted it documented somewhere that there was no covid in the building. SW advised that this would be included in this SW's note. Patient was not satisfied with this and wanted in writing from a circulation representative of [facility] that there was no covid in the building today. JIMMIE asked patient why he was hesitant to be tested for covid. Patient seemed frustrated by this question but did answer that he wanted to ensure that if he was tested and was negative here, that he would not contract covid during his time at [facility]. JIMMIE advised patient that she did not feel there was a way to guarantee that he did not contract covid in the future. Patient stated he didn't need a guarantee for a long period of time, just for today. JIMMIE again tried to advise that it was very difficult to give an absolute guarantee that he would not contract covid at any time following his test today, if he was agreeable to it. JIMMIE asked patient what his response would be if [facility] declined to give documentation of no covid in their building. Patient responded by asking SW what she would do as he is not safe to return home. JIMMIE followed up with Davin at [facility] who agreed to send SW an email documenting that there was no covid in their building. Davin sent JIMMIE an email and JIMMIE provided email to patient, which stated that at the time of the email, there was no known covid in their building. Patient stated he was satisfied with this and was agreeable to the test. Patient's inquired if there was any way to see if patient had covid based on patient' blood work this morning. JIMMIE again advised that [facility] requires a nasal swab. Patient asked who receives the results of his covid test. JIMMIE advised it would be kept in patient's medical records and provided to [facility]. Patient's states she does not patient tracked in the government system. SW assured patient that results would only be sent to [facility] if negative. Patient asked what would happen if he was positive and JIMMIE advised that if he was positive for covid, the team would meet to discuss further steps. Patient stated he would be agreeable to have swab done. JIMMIE faxed negative covid results to Davin at [facility]. Transport time set for 1500 and patient and his are agreeable to this.
== END 2022-02-11 15:30 | DRG 560 ==
PROVIDERS: ADMIT Physical Medicine & Rehabilitation Sports Medicine
DX: S82.102D Unspecified fracture of upper end of left tibia, subsequent encounter for closed fracture with routine healing (principal); G81.92 Hemiplegia, unspecified affecting left dominant side; E11.40 Type 2 diabetes mellitus with diabetic neuropathy, unspecified; I10 Essential (primary) hypertension; R56.9 Unspecified convulsions; R26.89 Other abnormalities of gait and mobility; Z95.2 Presence of prosthetic heart valve; Z79.01 Long term (current) use of anticoagulants; Z73.6 Limitation of activities due to disability; Z85.46 Personal history of malignant neoplasm of prostate; Z88.5 Allergy status to narcotic agent; Z79.84 Long term (current) use of oral hypoglycemic drugs; Z79.4 Long term (current) use of insulin; W01.0XXD Fall on same level from slipping, tripping and stumbling without subsequent striking against object, subsequent encounter; Y92.009 Unspecified place in unspecified non-institutional (private) residence as the place of occurrence of the external cause; Z92.3 Personal history of irradiation; Z79.899 Other long term (current) drug therapy; R21 Rash and other nonspecific skin eruption; K59.00 Constipation, unspecified; M25.512 Pain in left shoulder; Z20.822 Contact with and (suspected) exposure to COVID-19
CPT/HCPCS: A9284

== ENCOUNTER → 2022-02-14 | Outpatient (CLI) | payer MEDICARE ==
[~2022-02-14] MED LIST changes: +BANOPHEN MAXIMU1 CRE TP; +COLACE 100100 MG/CAP PO; +FLOMAX 0.40.4 MG/CAP PO; +HYDROCORTISON28.4 GM TP; +MIRALAX PA17 GM/Dose PO; +SALONPAS1 EACH TP; +TYLENOL 325MG325 MG PO
[2022-02-14 15:39] LABS: BASO # 0.1 K/mm3 (0.0-0.2); BASO % 1.8 % (0.0-2.0); EOS # 0.2 K/mm3 (0.0-0.7); EOS % 3.1 % (0.0-4.0); GRAN # 3.8 K/mm3 (1.4-6.5); GRAN % 70.2 % (42.2-75.2); HEMOGLOBIN 13.9 g/dl (13.5-18.0); LYMPH # 0.9 K/mm3 (1.2-3.4); LYMPH % 17.3 % (20.0-51.0); MEAN CELL VOLUME 91 fl (80.0-100.0); MEAN CORPUSCULAR HEMOGLOBIN 32 pg (27-31); MEAN CORPUSCULAR HGB CONC 35 g/dl (33.0-37.0); MEAN PLATELET VOLUME 9.2 fl (7.4-10.4); MONO # 0.4 K/mm3 (0.1-0.6); PLATELET COUNT 275 K/mm3 (130-400); RED BLOOD COUNT 4.41 M/mm3 (4.20-5.60); REDCELL DISTRIBUTION WIDTH-CV 12.3 % (11.5-14.5)
[2022-02-14 15:51] LABS: CALCIUM 9.2 mg/dL (8.4-10.2); CREATININE, serum 0.79 mg/dL (0.72-1.25)
== END ==
LOC: ZLAB.STJ 14:19
PROVIDERS: Internal Medicine
DX: I10 Essential (primary) hypertension (principal); Z79.01 Long term (current) use of anticoagulants

== ENCOUNTER 2023-09-17 10:13 | Emergency (ER) | payer MEDICARE ==
[~2023-09-17] VITALS: Ht 175.3 cm; Wt 85.0 kg
[2023-09-17 10:27] VITALS: TEMP 98.2
[2023-09-17 11:08] LABS: INR 2.9 (0.8-3.0); PROTHROMBIN TIME 30.9 SECONDS (9.7-12.8)
[2023-09-17 11:54] VITALS: BP 152/78; PULSE 58
== END 2023-09-17 11:54 | disposition home or self-care (01) ==
LOC: COL.ER 10:13
PROVIDERS: Physician Assistant
DX: S09.90XA Unspecified injury of head, initial encounter (principal); S00.01XA Abrasion of scalp, initial encounter; G81.94 Hemiplegia, unspecified affecting left nondominant side; Z79.01 Long term (current) use of anticoagulants; Z95.4 Presence of other heart-valve replacement; W01.10XA Fall on same level from slipping, tripping and stumbling with subsequent striking against unspecified object, initial encounter

== ENCOUNTER 2023-12-25 09:45 | Outpatient (RCR) | payer MEDICARE | END 2023-12-27 | disposition home or self-care (01) | LOC: MKS.ESL.OT | DX: G81.94 Hemiplegia, unspecified affecting left nondominant side (principal) ==

== ENCOUNTER 2024-01-26 08:45 | Outpatient (RCR) | payer MEDICARE | END 2024-01-27 | disposition home or self-care (01) | LOC: MKS.ESL.OT | DX: G81.94 Hemiplegia, unspecified affecting left nondominant side (principal) ==

== ENCOUNTER 2024-05-24 08:45 | Outpatient (RCR) | payer MEDICARE | END 2024-05-28 | disposition home or self-care (01) | LOC: MKS.ESL.OT | DX: G81.92 Hemiplegia, unspecified affecting left dominant side (principal) ==